=== PATIENT | male | born 1970 ===

== ENCOUNTER 2024-01-05 13:10 | Outpatient (AMB) | payer OTHER, SELFPAY ==
--- NOTE | 2024-01-05 13:17 | MHC.OFFWIV ---
Intake Intake Visit Reasons: Has a cold for a whole week Intake Note: pt is here for cold for one week Patient Tobacco Use Status: Never used Tobacco Allergies No Known Allergies Allergy (Verified 01/05/24 13:18) Do you need a note to return to daycare/school/sports/work: No Coding
--- NOTE | 2024-01-05 13:45 | AM.OFFWIN_ITS ---
Intake Vital Signs 01/05/24 13:50 Weight 160 lb 2 oz BP 130/80 Blood Pressure Location Lt brachial Position Sitting Respiration 16 Pulse 75 Pulse Source Pulse Oximeter Temp 97.8 F Temp Source Temporal Artery Scan Pulse Oximetry (%) 96 Oxygen Delivery Method Room Air Intake Visit Reasons: Has a cold for a whole week Intake Note: patient here c/o having a cold. Patient Tobacco Use Status: Never used Tobacco Allergies No Known Allergies Allergy (Verified 01/05/24 13:48) Do you need a note to return to daycare/school/sports/work: No HPI HPI Comments History of Present Illness Details 53-year-old male here today with complai nts of cold symptoms. Reports that about 1 week ago he started with coughing, sneezing and a scratchy throat. His symptoms have not worsened since onset. He is tried DayQuil and NyQuil without relief. He denies exposure to known sick contacts, travel, fever, chills, painful swallowing or chest pain Exam Awake alert NAD Sclera and conjunctiva clear bilat Nares patent with scant clear drainage, turbinates within normal limits, no sinus tenderness with palpation bilat cerumen impaction bilat unable to see TM MMM, pharynx mild PND, no exudate RRR LS CTAB Plan Supportive care w/ tessalon and Zrytec. If no improvement in 7-10 days RTO for re-eval. offered and declined viral swab today. Why aren't I getting antibiotics? I am so sick. I need them. I am empathetic that you're not feeling well & want you to recover quickly. The reason I have not prescribed antibiotics today is because I am an Antibiotic Jayde. What does that mean? It means that I am aiding in reducing Antimicrobial resistance (AMR). Antimicrobial resistance (AMR) is one of the top global public health and development threats. It is estimated that bacterial AMR was directly responsible for 1.27 million global deaths in 2019 and contributed to 4.95 million deaths. The misuse and overuse of antimicrobials in humans, animals and plants are the main drivers in the development of drug-resistant pathogens. Taking an antibiotic increases a patient?s chance of becoming colonized or infected with a resistant organism, and taking an antibiotic when not needed can lead to the development of antibiotic resistance. So the why... is because I care! PFSH Social History Patient Tobacco Use Status: Never used Tobacco Assessment & Plan Assessment & Plan (1) Nasopharyngitis: Code(s): J00 - Acute nasopharyngitis [common cold] Plan: . Plan . Medications: New cetirizine (Zyrtec) 10 mg PO DAILY 30 tabs 0RF benzonatate 100 mg PO TID 10 days PRN 30 caps 1RF cough Coding Level of Care Code Est Pt Level 3 (50137) Diagnoses Nasopharyngitis J00
[2024-01-05 13:50] VITALS: BP 130/80; PULSE 75; RESP 16; TEMP 36.6; O2SAT 96
== END 2024-01-05 14:31 | disposition home or self-care (01) ==
PROVIDERS: Visit Provider Nurse Practitioner Family
DX: J00 Acute nasopharyngitis [common cold] (principal)
CPT/HCPCS: 99213

== ENCOUNTER → 2024-03-01 12:23 | Outpatient (AMB) | payer OTHER, SELFPAY ==
--- NOTE | 2024-03-01 12:25 | MHC.OFFWIV ---
Intake Vital Signs 03/01/24 12:28 Height 5 ft 7 in Weight 160 lb 4 oz BMI 25.1 BP 118/70 Blood Pressure Location Rt brachial Position Sitting Respiration 14 Pulse 80 Pulse Source Pulse Oximeter Pulse Oximetry (%) 95 Oxygen Delivery Method Room Air Intake Visit Reasons: est/ right ear blockage Intake Note: patient is here today right ear blockage Patient Tobacco Use Status: Never used Tobacco Allergies No Known Allergies Allergy (Verified 03/01/24 12:34) Medication List - Last Reconciled 03/01/24 by THERESA Ceja No Known Home Meds HPI HPI Comments History of Present Illness Details 53-year-old male here today with chief complaints of R ear feeling blocked. It has been like this for a while . It does not hurt. Upon chart review it was noted that he was seen in the office in December, at that time he was diagnosed with nasal pharyngitis and found to have bilateral cerumen impactions. He has done nothing to treat the cerumen impactions. Denies constitutional symptoms, feels well. Exam Awake alert NAD Status post successful cerumen removal bilat, TMs intact erythematous, congestion did, loss of landmarks, mild bulging worse on the right side Plan Treat otitis media with amoxicillin. Advised to take with food. Use Flonase to help facilitate drainage. Successful cerumen removal today. Return to office education provided. This note is constructed using voice recognition software. While every effort has been made to ensure accuracy in glass rolling machine operator, still errors may have been included Sometimes, these errors may affect the content or meaning of the given sentence . PFSH Social History Patient Tobacco Use Status: Never used Tobacco Physical Exam Vital Signs: Last Vital Signs Pulse 80 03/01/24 12:28 Resp 14 03/01/24 12:28 BP 118/70 03/01/24 12:28 Pulse Ox 95 03/01/24 12:28 Oxygen Delivery Method Room Air 03/01/24 12:28 BMI result Body Mass Index 25.1 Office Procedures Cerumen Removal From which ear canal was the cerumen removed: bilateral Removal: irrigation Notes: patient tolerated procedure well, no complications and ear canal clear [id number] Irrigation/Lavage Assessment & Plan Assessment & Plan (1) Impacted cerumen, bilateral: Code(s): H61.23 - Impacted cerumen, bilateral Plan: . (2) Bilateral otitis media with effusion: Code(s): H65.93 - Unspecified nonsuppurative otitis media, bilateral Plan: . Plan . Medications: New fluticasone propionate 50 mcg/actuation administer into each nostril 1 spray intranasal BID 16 grams 0RF amoxicillin 875 mg PO BID 14 tabs 0RF Coding Level of Care Code Est Pt Level 4 (00560) Diagnoses Impacted cerumen, bilateral H61.23 Bilateral otitis media with effusion H65.93 CPT Codes Office Procedure - CPT: 32856-Htj Irrigation/Lavage ([id number])
[2024-03-01 12:28] VITALS: BP 118/70; PULSE 80; RESP 14; O2SAT 95; BMI 25.1
== END ==
PROVIDERS: Visit Provider Nurse Practitioner Family
DX: H61.23 Impacted cerumen, bilateral (principal); H65.93 Unspecified nonsuppurative otitis media, bilateral
CPT/HCPCS: 69209; 99214